=== PATIENT | female | born 1945 | race African-American/Black ===

== ENCOUNTER 2018-09-25 19:24 | Emergency (ER) | payer OTHER ==
[~2018-09-25] VITALS: Ht 167.6 cm; Wt 59.0 kg
[~2018-09-25 19:24] MED LIST: AMLODIPINE BESY10 MG PO; ASPIRIN EC81 MG ORAL; BENAZEPRIL HCL40 MG PO; BETA BLOCKER PO; CALCIUM PO; COZAAR50 MG ORAL; MAGNESIUM PO; METOPROLOL TART25 MG ORAL; TENORMIN25 MG PO; TRAMADOL HCL50 MG PO; XARELTO10 MG ORAL
[2018-09-25] MEDS ORDERED: CARVEDILOL25 MG ORAL (19:42)
--- NOTE | 2018-09-25 19:44 | NUR ---
ED Nurse Note: pt ambulated to ED from home c/o heart palpatations since this morning. Pt denies chest pain or sob, c/o chest pressure. A&Ox4, HR 119, BP 188/106, Dr Foster at bedside
[2018-09-25] MEDS ORDERED: Metoprolol 5mg/5ml Inj IVP SCH (19:45)
[2018-09-25 19:46] VITALS: BP 185/105
--- NOTE | 2018-09-25 19:52 | Emergency Room Report ---
History of Present Illness General Chief Complaint: Palpitations Source: Patient (Daniel Foster MD) Present Illness HPI Patient presents with chest heaviness. This began at 7:00 this morning. On Wednesday she was switched from metoprolol to carvedilol. Reason why she was switched is that her blood pressure was 150. It was not because her heart rate was overly controlled. She feels her heart racing also. She denies any fevers , chills, cough. She is mildly short of breath with this but there is no dyspnea on exertion. She has atrial fibrillation. She is not taking digoxin. She only takes baby aspirin to thin her blood. She had an adverse reaction to Xarelto with bleeding into her right knee. She denies chest pain but feels chest heaviness. No fevers, chills, chest pain, nausea, vomiting, diarrhea, dysuria, abdominal pain, depression, visual changes, headache. (Daniel Foster MD) Allergies: Coded Allergies: CORTISONE (Verified Allergy, Severe, SEIZURE; "BLOCKED-OUT", 11/29/13) BUTALBITAL (Unverified Allergy, Intermediate, UNK, 05/01/12) Dust (Verified Allergy, Intermediate, SNEEZING, 11/29/13) PENICILLINS (Verified Allergy, Intermediate, " FAINTING SPELLS", 11/29/13) STRAWBERRY (Verified Allergy, Mild, 10/04/12) COPIED FROM UNCODED SECTION TOMATO (Verified Allergy, Mild, 04/27/12) CHLOROTHIAZIDE (Unverified Allergy, Unknown, UNK, 11/29/13) EZETIMIBE (Verified Allergy, Unknown, 12/14/09) RAMIPRIL (Verified Allergy, Unknown, 12/14/09) ZOLEDRONIC ACID (Verified Allergy, Unknown, 10/16/15) ALENDRONATE SODIUM (Verified Adverse Reaction, Intermediate, DIARRHEA, ) CODEINE (Verified Adverse Reaction, Intermediate, SEVERE NAUSEA, 11/29/13) ERYTHROMYCIN BASE (Verified Adverse Reaction, Intermediate, ABDOMINAL CRAMPS AND DIARRHEA, 11/29/13) HYDROCHLOROTHIAZIDE (Verified Adverse Reaction, Mild, NAUSEA, 11/29/13) IBUPROFEN (Verified Adverse Reaction, Mild, ABDOMINAL CRAMP AND NAUSEA, ) NAPROXEN (Verified Adverse Reaction, Mild, ABDOMINAL CRAMPS, 11/29/13) TETRACYCLINE (Verified Adverse Reaction, Mild, STOMACH PROBLEM, 11/29/13) Uncoded Allergies: CITRUS (Allergy, Mild, 04/27/12) Patient History Past Medical History: see triage record Past Surgical History: other - Several surgeries including rotator cuff, jaw surgery Social History: Denies: smoking, alcohol use, drug use Social History Narrative with daughter Last Menstrual Period: n/a Reviewed Nursing Documentation: PMH: Agreed; PSxH: Agreed (Daniel Foster MD) Nursing Documentation-PMH Past Medical History: No History, Except For Hx Cardiac Problems: Yes - A-fib Hx Hypertension: Yes Hx Cancer: No Hx Gastrointestinal Problems: No Hx Neurological Problems: No Hx Memory Loss: Yes Hx Vertigo: Yes Hx Headaches: Yes - MIGRAINES (Daniel Foster MD) Review of Systems All Other Systems: negative except mentioned in HPI (Daniel Foster MD) Physical Exam Vital Signs Date Time Temp Pulse Resp B/P (MAP) Pulse Ox O2 Delivery O2 Flow Rate FiO2 09/25/18 19:26 97.9 119 18 188/106 (133) 93 Room Air Sp02 EP Interpretation: reviewed, normal General Appearance: well appearing, no apparent distress, GCS 15 Head: normocephalic, atraumatic Eyes: bilateral eye normal inspection, bilateral eye PERRL, bilateral eye EOMI ENT: moist mucus membranes Neck: supple Respiratory: lungs clear, normal breath sounds Cardiovascular #1: no edema, tachycardia, irregularly irregular Cardiovascular #2: 2+ radial (R) Gastrointestinal: normal inspection, normal bowel sounds, non tender, no mass, non-distended Musculoskeletal: back normal, gait/station normal, normal range of motion, no calf tenderness, Sulaiman's Sign negative Neurologic: alert, oriented x3, motor strength/tone normal, DTRs symmetric, sensory intact, cerebellar normal, normal gait, speech normal Psychiatric: mood/affect normal Skin: normal inspection, warm/dry (Daniel Foster MD) Medical Decision Making Diagnostic Impression: Primary Impression: Atrial fibrillation with RVR Additional Impression: Hypertension Qualified Codes: I10 - Essential (primary) hypertension ER Course Patient presents with chest heaviness and palpitations with a rapid heartbeat. Differential includes atrial fibrillation with rapid ventricular response, sinus tachycardia, electrolyte abnormality, acute myocardial infarction, pulmonary embolus amongst others. Evaluation will be with EKG, chest x-ray and labs. The patient will be treated with metoprolol. EKG with rapid atrial fibrillation rate of 109 no injury however strain laterally. Labs unremarkable. Chest x-ray without heart failure. Metoprolol 5 mg given with control of rate and improve blood pressure. c/o L arm and chest pain. Repeat EKG, no injury. A fib rate 88 Improved with metoprolol. Admit tele. Discussed findings with daughter. Signed out to Dr. Keys for admitting MD. Laboratory Tests Test 09/25/18 19:42 09/25/18 21:00 White Blood Count 5.7 K/UL (4.8-10.8) Red Blood Count 4.98 M/UL (4.20-5.40) Hemoglobin 12.7 G/DL (12.0-16.0) Hematocrit 38.6 % (37.0-47.0) Mean Corpuscular Volume 78 FL (80-99) L Mean Corpuscular Hemoglobin 25.5 PG (27.0-31.0) L Mean Corpuscular Hemoglobin Concent 33.0 G/DL (32.0-36.0) Red Cell Distribution Width 13.5 % (11.6-14.8) Platelet Count 196 K/UL (150-450) Mean Platelet Volume 9.2 FL (6.5-10.1) Neutrophils (%) (Auto) 63.9 % (45.0-75.0) Lymphocytes (%) (Auto) 25.7 % (20.0-45.0) Monocytes (%) (Auto) 7.2 % (1.0-10.0) Eosinophils (%) (Auto) 2.0 % (0.0-3.0) Basophils (%) (Auto) 1.3 % (0.0-2.0) Prothrombin Time 11.4 SEC (9.30-11.50) Prothrombin Time INR 1.1 (0.9-1.1) PTT 27 SEC (23-33) Sodium Level 138 MMOL/L (136-145) Potassium Level 3.6 MMOL/L (3.5-5.1) Chloride Level 103 MMOL/L (98-107) Carbon Dioxide Level 27 MMOL/L (21-32) Anion Gap 8 mmol/L (5-15) Blood Urea Nitrogen 17 mg/dL (7-18) Creatinine 0.8 MG/DL (0.55-1.30) Estimate Glomerular Filtration Rate mL/min (>60) Glucose Level 110 MG/DL (74-106) H Calcium Level 10.0 MG/DL (8.5-10.1) Total Bilirubin 0.3 MG/DL (0.2-1.0) Aspartate Amino Transferase (AST) 22 U/L (15-37) Alanine Aminotransferase (ALT) 39 U/L (12-78) Alkaline Phosphatase 81 U/L (46-116) Total Creatine Kinase 58 U/L (26-308) Troponin I 0.001 ng/mL (0.000-0.056) Pro-B-Type Natriuretic Peptide 732 pg/mL (0-125) H Total Protein 8.1 G/DL (6.4-8.2) Albumin 4.2 G/DL (3.4-5.0) Globulin 3.9 g/dL Albumin/Globulin Ratio 1.1 (1.0-2.7) Urine Color Pale yellow Urine Appearance Clear Urine pH 5 (4.5-8.0) Urine Specific Todd 1.010 (1.005-1.035) Urine Protein Negative (NEGATIVE) Urine Glucose (UA) Negative (NEGATIVE) Urine Ketones Negative (NEGATIVE) Urine Blood Negative (NEGATIVE) Urine Nitrite Negative (NEGATIVE) Urine Bilirubin Negative (NEGATIVE) Urine Urobilinogen Normal MG/DL (0.0-1.0) Urine Leukocyte Esterase 1+ (NEGATIVE) H Urine RBC 0 /HPF (0 - 2) Urine WBC 0-2 /HPF (0 - 2) Urine Squamous Epithelial Cells None /LPF (NONE/OCC) Urine Bacteria None /HPF (NONE) (Daniel Foster MD) ER Course Patient signed out to me. She presents with rapid A. fib. Rate control with metoprolol. Her primary care doctor is Dr. Roseann Neal, with [facility]. Her presiding judge is Dr. Murphy. This group usually admits to Dr. Mensah. I discussed the case with Dr. Hilton who accepted the patient for admission. (Omar Keys MD) EKG Diagnostic Results Rate: tachycardiac Rhythm: other - Atrial fibrillation ST Segments: no acute changes - Lateral strain (Daniel Foster MD) Rhythm Strip Diag. Results EP Interpretation: yes Rhythm: no PVC's, no ectopy, other - A. fib RVR (Daniel Foster MD) Chest X-Ray Diagnostic Results Chest X-Ray Diagnostic Results : Chest X-Ray Ordered: Yes # of Views/Limited/Complete: 1 View Indication: Other EP Interpretation: Yes Interpretation: no consolidation, no effusion, no pneumothorax Impression: Other Electronically Signed by: Electronically signed by Daniel Foster MD (Daniel Foster MD) Last Vital Signs Date Time Temp Pulse Resp B/P (MAP) Pulse Ox O2 Delivery O2 Flow Rate FiO2 09/26/18 00:09 98.1 110 15 138/99 99 Room Air Status: improved (Daniel Foster MD) Status: improved (Omar Keys MD) Disposition: ADMITTED INPATIENT Condition: Serious Daniel Foster MD Sep 25, 2018 19:52 Omar Keys MD Sep 25, 2018 22:33
[2018-09-25 19:56] LABS: BASOPHILS % (AUTO) 1.3 % (0.0-2.0); HEMATOCRIT 38.6 % (37.0-47.0); HEMOGLOBIN 12.7 G/DL (12.0-16.0); LYMPHOCYTES % (AUTO) 25.7 % (20.0-45.0); MEAN CORPUSCULAR VOLUME 78 FL (80-99); MONOCYTES % (AUTO) 7.2 % (1.0-10.0); NEUTROPHILS % (AUTO) 63.9 % (45.0-75.0); PLATELET COUNT 196 K/UL (150-450); RED BLOOD COUNT 4.98 M/UL (4.20-5.40); RED CELL DISTRIBUTION WIDTH 13.5 % (11.6-14.8); WHITE BLOOD COUNT 5.7 K/UL (4.8-10.8)
--- NOTE | 2018-09-25 20:00 | NUR ---
ED Nurse Note: Only one dose of metoprolol given a this time, per Dr Foster. BP 168/89, HR 78
[2018-09-25 20:02] LABS: INR 1.1 (0.9-1.1)
[2018-09-25 20:03] LABS: ANION GAP 8 mmol/L (5-15); BLOOD UREA NITROGEN 17 mg/dL (7-18); CARBON DIOXIDE 27 MMOL/L (21-32); CHLORIDE 103 MMOL/L (98-107); CREATININE 0.8 MG/DL (0.55-1.30); POTASSIUM 3.6 MMOL/L (3.5-5.1); SODIUM 138 MMOL/L (136-145)
[2018-09-25 20:13] LABS: ALANINE AMINOTRANSFERASE 39 U/L (12-78); ALBUMIN 4.2 G/DL (3.4-5.0); ALBUMIN/GLOBULIN RATIO 1.1 (1.0-2.7); ALKALINE PHOSPHATASE 81 U/L (46-116); ASPARTATE AMINO TRANSFERASE 22 U/L (15-37); BILIRUBIN,TOTAL 0.3 MG/DL (0.2-1.0); CREATINE KINASE 58 U/L (26-308)
[2018-09-25 21:19] LABS: APPEARANCE,URINE CLEAR; BILIRUBIN, URINE NEGATIVE (NEGATIVE); COLOR,URINE PALE YELLOW; GLUCOSE, URINE (UA) NEGATIVE (NEGATIVE); KETONES,URINE NEGATIVE (NEGATIVE); LEUKOCYTE ESTERASE ,URINE 1+ (NEGATIVE); NITRITE,URINE NEGATIVE (NEGATIVE); PH,URINE 5 (4.5-8.0); PROTEIN,URINE NEGATIVE (NEGATIVE); UROBILINOGEN,URINE NORMAL MG/DL (0.0-1.0)
--- NOTE | 2018-09-25 21:44 | NUR ---
ED Nurse Note: EKG remaining attached to pt temporarily to capture RVR per Dr Foster. Will continue to monitor.
[2018-09-25 21:45] VITALS: BP 168/98
[2018-09-25] MEDS ORDERED: Metoprolol 5mg/5ml Inj ONE (22:40)
[2018-09-25] MEDS ORDERED: Metoprolol Tartrate 50mg tab ORAL ONE (22:45)
[2018-09-25] MEDS ORDERED: Metoprolol Succinate XL 50mg tab ORAL ONE (22:45)
[2018-09-25] MEDS ORDERED: Metoprolol 5mg/5ml Inj IVP ONE (22:45)
[2018-09-26 00:09] VITALS: BP 138/99
--- NOTE | 2018-09-26 00:54 | NUR ---
RECEIVED PHONE CALL FROM TRANSFER C[facility], [facility] ETA [id number] BED: 2030 NUMBER TO GIVE REPORT [phone]
[2018-09-26 01:57] VITALS: BP 166/103
[2018-09-26 02:20] VITALS: BP 103/76
--- NOTE | 2018-09-26 02:48 | NUR ---
ED Nurse Note: Called JESSEE Bray to give report to Shikha HARRELL. Report also given to ALS during pickle solution maker at this time. Patient is ambulatory with steady gait, A&Ox4, no signs or symptoms of acute distress. Patient is cleared for transfer to alternate facility due to insurance. Patient able to ambulate to bedside commode prior to departure.
[2018-09-26 03:08] VITALS: BP 103/76
[2018-09-26] MEDS ORDERED: Losartan 25mg tab ORAL ONE (09:00)
[2018-09-26] MEDS ORDERED: Aspirin Baby 81mg ORAL ONE (09:00)
[2018-09-26] MEDS ORDERED: Metoprolol Succinate XL 50mg tab ORAL ONE (09:00)
--- NOTE | 2018-09-26 15:20 | Diagnostic Imaging Report ---
Indication: Shortness of breath Technique: One view of the chest Comparison: 11/29/2013 Findings: Improved visualization left hemidiaphragm likely reflects resolved basilar atelectasis. Lungs pleural spaces currently clear. The heart is borderline enlarged. Impression: No definite acute process Borderline cardiomegaly
[2018-09-26] MEDS ORDERED: Xarelto 10mg tab ORAL SCH (16:30)
== END 2018-09-26 03:09 | disposition other institution (70) ==
LOC: EMR 20:01 → EDBEDREQ 22:31 → EMR 09-26 03:09
DX: I48.2 Chronic atrial fibrillation (principal); I10 Essential (primary) hypertension; R00.0 Tachycardia, unspecified; Z79.82 Long term (current) use of aspirin; Z88.8 Allergy status to other drugs, medicaments and biological substances; Z88.0 Allergy status to penicillin; Z91.018 Allergy to other foods
CPT/HCPCS: 36415; 71045; 80053; 81003; 82550; 83880; 84484; 85025; 85610; 85730; 93005; 96374; 96376; 99285